=== PATIENT | male | born 1980 | race Caucasian/White ===

== ENCOUNTER 2018-07-08 05:40 | Inpatient (IN) | payer MEDICAID, OTHER ==
[~2018-07-08] VITALS: Ht 180.3 cm; Wt 106.6 kg
[2018-07-08] MEDS ORDERED: QUET25TA PO (06:00)
[2018-07-08] MEDS ORDERED: ARIP2 PO (06:00)
[2018-07-08 06:07] LABS: BASOPHILS % (AUTO) 1.2 % (0.0-2.0); EOSINOPHILS % (AUTO) 0.1 % (1.0-6.0); HEMATOCRIT 44.8 % (41-53); HEMOGLOBIN 14.4 g/dL (13.5-17.5); LYMPHOCYTES # (AUTO) 1.5 K/uL (1.0-4.8); LYMPHOCYTES % (AUTO) 8.9 % (22.0-44.0); MEAN CORPUSCULAR HGB CONC 32.1 G/dL (31.0-37.0); MEAN CORPUSCULAR VOLUME 90 fL (80-100); MONOCYTES # (AUTO) 1.6 K/uL (0.1-1.0); MONOCYTES % (AUTO) 9.3 % (2.0-9.0); NEUTROPHILS # (AUTO) 13.4 K/uL (1.8-7.7); NEUTROPHILS % (AUTO) 80.5 % (40.0-70.0); PLATELET COUNT (AUTO) 326 K/uL (150-450); RED BLOOD CELL COUNT(AUTO) 4.97 MIL/uL (4.50-5.90); RED CELL DISTRIBUTION WIDTH 13.9 % (11.5-14.5)
[2018-07-08 06:15] LABS: ANION GAP 12 mmol/L (8-16); CALCIUM, TOTAL 9.5 mg/dL (8.8-10.5); CARBON DIOXIDE 27 mmol/L (22-29); CHLORIDE 107 mmol/L (98-107); CREATININE 1.12 mg/dL (0.60-1.30); GLOMERULAR FILTR. RATE CALC > 60 mL/min (>60); GLUCOSE,RANDOM 118 mg/dL (70-110); SODIUM SERUM 146 mmol/L (136-145); UREA NITROGEN, BLOOD 23 mg/dL (7-18)
[2018-07-08] MEDS ORDERED: DiphenhydrAMINE HCL 50 MG/ML VIAL IM ONE (06:15)
[2018-07-08] MEDS ORDERED: HALOPERIDOL LACTATE 5 MG/ML VIAL IM ONE (06:15)
[2018-07-08] MEDS ORDERED: QUEtiapine FUMARATE 25 MG TABLET PO ONE (06:15)
[2018-07-08] MEDS ORDERED: LORazepam 2 MG/ML VIAL IM ONE (06:15)
[2018-07-08] MEDS ORDERED: LORazepam 1 MG TABLET PO ONE (06:15)
[2018-07-08 06:20] LABS: ALANINE AMINOTRANSFERASE 97 U/L (12-78); ALBUMIN 4.2 g/dL (3.4-5.0); ALKALINE PHOSPHATASE 76 U/L (46-116); ASPARTATE AMINOTRANSFERASE 117 U/L (15-37); BILIRUBIN,TOTAL 1.2 mg/dL (0.1-1.0); TOTAL PROTEIN, SERUM 7.8 g/dL (6.4-8.2)
[2018-07-08] MEDS ORDERED: SODIUM CHLORIDE 0.9% 1,000 ML IV ONE (10:15)
[2018-07-08] MEDS ORDERED: LORazepam 2 MG/ML VIAL IVP ONE ×2 (10:15→17:15)
[2018-07-08 10:56] LABS: AMPHET/METH SCREEN,URINE NEGATIVE (NEGATIVE); BARBITURATE SCREEN, URINE NEGATIVE (NEGATIVE); BENZODIAZEPINES SCREEN,URINE NEGATIVE (NEGATIVE); CANNABINOID SCREEN,URINE NEGATIVE (NEGATIVE); COCAINE SCREEN,URINE NEGATIVE (NEGATIVE); METHADONE SCREEN, URINE NEGATIVE (NEGATIVE); OPIATE SCREEN,URINE NEGATIVE (NEGATIVE)
[2018-07-08 10:58] LABS: PHENCYCLIDINE SCREEN,URINE NEGATIVE (NEGATIVE)
[2018-07-08] MEDS ORDERED: HALOPERIDOL LACTATE 5 MG/ML VIAL IVP ONE (17:15)
[2018-07-08] MEDS ORDERED: DiphenhydrAMINE HCL 50 MG/ML VIAL IVP ONE (17:15)
[2018-07-08 20:42] VITALS: BP 131/74
[2018-07-09 05:56] VITALS: BP 135/86
[2018-07-09 08:05] VITALS: BP 143/90
[2018-07-09] MEDS: NYSTATIN 30 GM CREAM TP SCH ×2 (09:06→16:43)
[2018-07-09 14:00] VITALS: BP_SYST 160; BP_DIAS 1; BP_DIAS 109; BP_DIAS 110
[2018-07-09 14:15] VITALS: BP_SYST 160; BP_SYST 165; BP_DIAS 100; BP_DIAS 109
[2018-07-09] MEDS ORDERED: LORazepam 2 MG/ML VIAL IM ONE (14:30)
[2018-07-09] MEDS ORDERED: DiphenhydrAMINE HCL 50 MG/ML VIAL IM ONE (14:30)
[2018-07-09] MEDS ORDERED: HALOPERIDOL LACTATE 5 MG/ML VIAL IM ONE (14:30)
[2018-07-09 16:00] VITALS: BP 126/81
[2018-07-09] MEDS: QUEtiapine FUMARATE 200 MG TABLET PO SCH (20:34)
[2018-07-10 04:19] VITALS: BP 111/66
[2018-07-10] MEDS: NYSTATIN 30 GM CREAM TP SCH ×2 (08:41→16:13)
[2018-07-10] MEDS: LORazepam 2 MG TABLET PO PRN ×2 (08:41→16:13)
[2018-07-10 08:51] LABS: BASOPHILS % (AUTO) 0.7 % (0.0-2.0); EOSINOPHILS % (AUTO) 1.9 % (1.0-6.0); HEMATOCRIT 38.3 % (41-53); HEMOGLOBIN 12.3 g/dL (13.5-17.5); LYMPHOCYTES # (AUTO) 1.7 K/uL (1.0-4.8); LYMPHOCYTES % (AUTO) 25.3 % (22.0-44.0); MEAN CORPUSCULAR HEMOGLOBIN 28.9 pg (26.0-34.0); MEAN CORPUSCULAR HGB CONC 32.1 G/dL (31.0-37.0); MEAN CORPUSCULAR VOLUME 90 fL (80-100); MONOCYTES # (AUTO) 0.8 K/uL (0.1-1.0); MONOCYTES % (AUTO) 12.2 % (2.0-9.0); NEUTROPHILS % (AUTO) 59.9 % (40.0-70.0); PLATELET COUNT (AUTO) 237 K/uL (150-450); RED BLOOD CELL COUNT(AUTO) 4.25 MIL/uL (4.50-5.90); RED CELL DISTRIBUTION WIDTH 13.6 % (11.5-14.5)
[2018-07-10] MEDS ORDERED: PALIPERIDONE PALMITATE 234 MG/1.5 ML SYRINGE IM ONE (09:00)
[2018-07-10 10:25] LABS: ALANINE AMINOTRANSFERASE 67 U/L (12-78); ALBUMIN 2.9 g/dL (3.4-5.0); ALKALINE PHOSPHATASE 54 U/L (46-116); ANION GAP 8 mmol/L (8-16); ASPARTATE AMINOTRANSFERASE 63 U/L (15-37); BILIRUBIN,TOTAL 0.6 mg/dL (0.1-1.0); CALCIUM, TOTAL 8.5 mg/dL (8.8-10.5); CARBON DIOXIDE 29 mmol/L (22-29); CHLORIDE 108 mmol/L (98-107); CHOL/HDL RATIO 4.7 (4.2-7.3); CHOLESTEROL 127 mg/dL (131-200); CREATININE 0.76 mg/dL (0.60-1.30); FREE T4 (FREE THYROXINE) 1.07 ng/dL (0.76-1.46); GLOMERULAR FILTR. RATE CALC > 60 mL/min (>60); GLUCOSE,RANDOM 86 mg/dL (70-110); HDL CHOLESTEROL 27 mg/dL (40-60); LDL CHOL (CALC.) 75 mg/dL (0-130); PHOSPHORUS 3.8 mg/dL (2.5-4.9); POTASSIUM 3.3 mmol/L (3.5-5.1); SODIUM SERUM 145 mmol/L (136-145); THYROID STIMULATING HORMONE 1.08 uIU/mL (0.36-3.74); TRIGLYCERIDES 125 mg/dL (15-150); UREA NITROGEN, BLOOD 14 mg/dL (7-18)
[2018-07-10] MEDS ORDERED: POTASSIUM CHLORIDE 20 MEQ ER TABLET PO ONE (10:45)
[2018-07-10 16:00] VITALS: BP 128/84
[2018-07-10] MEDS: QUEtiapine FUMARATE 200 MG TABLET PO SCH (20:21)
[2018-07-11 05:30] VITALS: BP 117/72
[2018-07-11 08:02] LABS: ANION GAP 8 mmol/L (8-16); CALCIUM, TOTAL 8.8 mg/dL (8.8-10.5); CARBON DIOXIDE 28 mmol/L (22-29); CHLORIDE 106 mmol/L (98-107); CREATININE 0.75 mg/dL (0.60-1.30); GLOMERULAR FILTR. RATE CALC > 60 mL/min (>60); GLUCOSE,RANDOM 91 mg/dL (70-110); POTASSIUM 4.1 mmol/L (3.5-5.1); SODIUM SERUM 142 mmol/L (136-145); UREA NITROGEN, BLOOD 13 mg/dL (7-18)
[2018-07-11 08:21] VITALS: BP 136/83
[2018-07-11] MEDS: NYSTATIN 30 GM CREAM TP SCH ×2 (09:00→16:55)
[2018-07-11 16:00] VITALS: BP 131/72
[2018-07-11] MEDS: LORazepam 2 MG TABLET PO PRN (16:55)
[2018-07-11] MEDS: QUEtiapine FUMARATE 200 MG TABLET PO SCH (20:44)
[2018-07-12 06:28] VITALS: BP 121/75
[2018-07-12 08:07] VITALS: BP 142/82
[2018-07-12] MEDS: LORazepam 2 MG TABLET PO PRN ×2 (08:46→17:03)
[2018-07-12] MEDS: NYSTATIN 30 GM CREAM TP SCH ×2 (08:46→17:03)
[2018-07-12] MEDS: HALOPERIDOL 5 MG TABLET PO PRN (10:02)
[2018-07-12] MEDS: QUEtiapine FUMARATE 200 MG TABLET PO SCH (21:16)
[2018-07-13 05:51] VITALS: BP 133/81
[2018-07-13 08:15] VITALS: BP 138/90
[2018-07-13] MEDS: NYSTATIN 30 GM CREAM TP SCH ×2 (09:01→16:51)
[2018-07-13] MEDS: LORazepam 2 MG TABLET PO PRN (16:51)
[2018-07-13] MEDS: QUEtiapine FUMARATE 200 MG TABLET PO SCH (20:11)
[2018-07-13] MEDS: ZOLPIDEM TARTRATE 10 MG TABLET PO PRN (20:12)
[2018-07-14 06:36] VITALS: BP 141/92
[2018-07-14 08:00] VITALS: BP 142/83
[2018-07-14] MEDS: HALOPERIDOL 5 MG TABLET PO PRN ×2 (09:21→17:04)
[2018-07-14] MEDS: NYSTATIN 30 GM CREAM TP SCH ×2 (09:21→17:03)
[2018-07-14] MEDS: LORazepam 2 MG TABLET PO PRN ×2 (09:21→17:04)
[2018-07-14 16:10] VITALS: BP 132/92
[2018-07-14] MEDS: ZOLPIDEM TARTRATE 10 MG TABLET PO PRN (20:19)
[2018-07-14] MEDS: QUEtiapine FUMARATE 200 MG TABLET PO SCH (20:19)
[2018-07-15 03:58] VITALS: BP 132/93
[2018-07-15 09:08] VITALS: BP 129/93
[2018-07-15] MEDS: NYSTATIN 30 GM CREAM TP SCH ×2 (09:40→17:04)
[2018-07-15] MEDS: QUEtiapine FUMARATE 200 MG TABLET PO SCH (20:40)
[2018-07-15] MEDS: ZOLPIDEM TARTRATE 10 MG TABLET PO PRN (20:41)
[2018-07-16 03:44] VITALS: BP 133/88
[2018-07-16 08:06] VITALS: BP 143/79
[2018-07-16] MEDS ORDERED: MAG HYDROX/AL HYDROX/SIMETH ES 30 ML SUSPENSION UDCUP PO PRN (08:30)
[2018-07-16] MEDS ORDERED: MAGNESIUM HYDROXIDE SUSPENSION 30 ML UDCUP PO PRN (08:30)
[2018-07-16] MEDS ORDERED: ALBUTEROL SULFATE HFA 90 MCG/PUFF 8 GM INHALER IH PRN (08:30)
[2018-07-16] MEDS ORDERED: LOPERAMIDE HCL 2 MG CAPSULE PO PRN (08:30)
[2018-07-16] MEDS ORDERED: IBUPROFEN 600 MG TABLET PO PRN (08:30)
[2018-07-16] MEDS ORDERED: ONDANSETRON HCL 4 MG TABLET PO PRN (08:30)
[2018-07-16] MEDS ORDERED: BACITRACIN 28.4 GM OINTMENT TP PRN (08:30)
[2018-07-16] MEDS ORDERED: PETROLATUM,WHITE 71 GM JELLY TP PRN (08:30)
[2018-07-16] MEDS ORDERED: CloNIDine HCL 0.1 MG TABLET PO PRN (08:30)
[2018-07-16] MEDS ORDERED: BENZOCAINE/MENTHOL LOZENGE MM PRN (08:30)
[2018-07-16] MEDS ORDERED: ACETAMINOPHEN 325 MG TABLET PO PRN (08:30)
[2018-07-16] MEDS: LORazepam 2 MG TABLET PO PRN (08:48)
[2018-07-16] MEDS: NYSTATIN 30 GM CREAM TP SCH ×2 (08:48→16:39)
[2018-07-16] MEDS: OMEPRAZOLE 20 MG CAPSULE PO SCH (08:58)
[2018-07-16] MEDS: DOCUSATE SODIUM 100 MG CAPSULE PO SCH (08:58)
[2018-07-16 16:00] VITALS: BP 127/76
[2018-07-16] MEDS: QUEtiapine FUMARATE 200 MG TABLET PO SCH (20:19)
[2018-07-17 07:03] VITALS: BP 125/80
[2018-07-17] MEDS: NYSTATIN 30 GM CREAM TP SCH ×2 (08:53→17:00)
[2018-07-17] MEDS: DOCUSATE SODIUM 100 MG CAPSULE PO SCH (08:53)
[2018-07-17] MEDS: OMEPRAZOLE 20 MG CAPSULE PO SCH (08:53)
[2018-07-17 09:00] VITALS: BP 139/83
[2018-07-17 16:00] VITALS: BP 113/85
[2018-07-17] MEDS: QUEtiapine FUMARATE 200 MG TABLET PO SCH (20:49)
[2018-07-17] MEDS: ZOLPIDEM TARTRATE 10 MG TABLET PO PRN (20:49)
[2018-07-18 06:10] VITALS: BP 125/82
[2018-07-18 08:05] VITALS: BP 141/91
[2018-07-18] MEDS: NYSTATIN 30 GM CREAM TP SCH ×2 (08:42→17:02)
[2018-07-18] MEDS: OMEPRAZOLE 20 MG CAPSULE PO SCH (08:42)
[2018-07-18] MEDS: LORazepam 2 MG TABLET PO PRN ×2 (08:42→17:02)
[2018-07-18] MEDS: DOCUSATE SODIUM 100 MG CAPSULE PO SCH (08:42)
[2018-07-18 16:00] VITALS: BP 131/69
[2018-07-18] MEDS: QUEtiapine FUMARATE 200 MG TABLET PO SCH (20:30)
[2018-07-18] MEDS: ZOLPIDEM TARTRATE 10 MG TABLET PO PRN (20:30)
[2018-07-19 06:40] VITALS: BP 116/82
[2018-07-19 08:25] VITALS: BP 137/80
[2018-07-19] MEDS: DOCUSATE SODIUM 100 MG CAPSULE PO SCH (08:32)
[2018-07-19] MEDS: OMEPRAZOLE 20 MG CAPSULE PO SCH (08:32)
[2018-07-19] MEDS: NYSTATIN 30 GM CREAM TP SCH ×2 (08:33→17:03)
[2018-07-19 16:18] VITALS: BP 145/87
[2018-07-19] MEDS: LORazepam 2 MG TABLET PO PRN (17:03)
[2018-07-19] MEDS: QUEtiapine FUMARATE 200 MG TABLET PO SCH (20:37)
[2018-07-19] MEDS: ZOLPIDEM TARTRATE 10 MG TABLET PO PRN (20:37)
[2018-07-20 06:53] VITALS: BP 135/86
[2018-07-20] MEDS: NYSTATIN 30 GM CREAM TP SCH (08:32)
[2018-07-20] MEDS: DOCUSATE SODIUM 100 MG CAPSULE PO SCH (08:32)
[2018-07-20] MEDS: OMEPRAZOLE 20 MG CAPSULE PO SCH (08:32)
[2018-07-20] MEDS ORDERED: NYST15PO3 TP (12:42)
[2018-07-20] MEDS ORDERED: QUET200T PO (12:42)
[2018-07-20] MEDS ORDERED: PALI234D IM (12:46)
== END 2018-07-20 13:15 | disposition home or self-care (01) | DRG 750 ==
LOC: EMS 05:42 → B3A 17:14 → UNDOADMIN 17:14 → B3A 21:21
PROVIDERS: ADMIT Psychiatry & Neurology Psychiatry; ATTEND Psychiatry & Neurology Psychiatry
DX: F20.0 Paranoid schizophrenia (principal); E87.0 Hyperosmolality and hypernatremia; D72.829 Elevated white blood cell count, unspecified; K59.00 Constipation, unspecified; G47.00 Insomnia, unspecified; Z78.1 Physical restraint status; Z91.14 Patient's other noncompliance with medication regimen
CPT/HCPCS: 80074; 83735; 84100; 84439; 84443; 90686; 96372; 96374; 99291; G0480; J1200; J1630; J2060